=== PATIENT | female | born 1955 | race African-American/Black ===

== ENCOUNTER 2016-10-04 11:11 | Inpatient (IN) | payer OTHER, MEDICAID ==
[~2016-10-04] VITALS: Ht 177.8 cm; Wt 72.4 kg
[~2016-10-04 11:11] MED LIST: ENAL5TAB92; GABA1POW27 PO; GABAP; HYDR-1421; METH10TA6 PO; METO-169; PACERONE PO; SIMV10TA84 PO; VITAMIN D PO
[2016-10-04] MEDS ORDERED: ALBUTEROL SULF 2.5 MG/0.5ML(0.5%) NEB SOLN HHN STA (14:04)
[2016-10-04] MEDS ORDERED: methylPREDNISolone SOD SUCC 125 MG/2 ML VL IV ONE (14:15)
[2016-10-04] MEDS ORDERED: LEVOFLOXACIN 500MG 100 ML IV ONE (14:15)
[2016-10-04] MEDS ORDERED: IPRATROPIUM BROM 0.5 MG/2.5ML INH SOL NEB ONE (14:15)
[2016-10-04 14:27] LABS: Basophils # (auto) 0 uL; Basophils % (auto) 0.2 % (0.0-2.0); Eosinophils # (auto) 0 uL; Eosinophils % (auto) 0.1 % (0.0-7.0); Hematocrit 43.1 % (36.0-46.0); Hemoglobin 13.8 g/dL (12.2-16.2); Lymphocytes # (auto) 1.3 uL; Lymphocytes % (auto) 12.5 % (10.0-50.0); Mean Corpuscular Hemoglobin 31.2 pg (28.0-32.0); Mean Corpuscular Hgb Conc. 32.1 g/dL (32.0-36.0); Mean Platelet Volume 8.5 fL (7.4-10.4); Monocytes # (auto) 1.1 uL; Monocytes % (auto) 10.5 % (0.0-12.0); Neutrophils % (auto) 76.7 % (37.0-80.0); Platelet Count (auto) 224 10^3/uL (140-450); Red Cell Distribution Width 14.6 % (11.6-16.0); White Blood Cell 10.4 10^3/uL (4.4-10.8)
[2016-10-04 14:50] LABS: Albumin 3.7 g/dL (3.4-5.0); BUN/Creatinine Ratio 9.7; Bilirubin, Total 1.5 mg/dL (0.2-1.0); Calcium 9.5 mg/dL (8.5-10.1); Magnesium 2.1 mg/dL (1.6-2.6); Potassium 4.1 mmol/L (3.5-5.1)
[2016-10-04 14:52] LABS: Lactic Acid 2.3 mmol/L (0.4-2.0)
[2016-10-04] MEDS ORDERED: SODIUM CHLORIDE 0.9% 250 ML IV ONE (15:00)
[2016-10-04 15:12] LABS: B-Type Natriuretic Peptide 262.64 pg/mL (0-100); Temperature: 23.5 C (20.0-25.0)
[2016-10-04 15:22] LABS: REFLEX LACTIC ACID YES OR NO YES
[2016-10-04] MEDS ORDERED: AZITHROMYCIN 500MG/D5W 250ML 250 ML IV ONE (16:00)
[2016-10-04] MEDS ORDERED: cloNIDine HCL 0.1 MG TAB PO PRN (16:15)
[2016-10-04] MEDS ORDERED: MORPHINE SULF INJ 2 MG/ML SYRINGE 1ML IV PRN ×2 (16:15)
[2016-10-04] MEDS ORDERED: NITROGLYCERIN 0.4 MG SL TAB SL PRN (16:15)
[2016-10-04] MEDS ORDERED: ACETAMINOPHEN 325 MG TAB PO PRN (16:15)
[2016-10-04] MEDS ORDERED: AMIODARONE HCL 200 MG TAB PO ONE (16:15)
[2016-10-04] MEDS ORDERED: DOCUSATE SOD 100 MG CAP PO PRN (16:15)
[2016-10-04] MEDS ORDERED: CHOLECALCIFEROL (VITD3) 1,000 UNIT TAB PO ONE (16:15)
[2016-10-04] MEDS ORDERED: amLODIPine BESYLATE 5 MG TAB PO ONE (16:15)
[2016-10-04] MEDS ORDERED: CYANOCOBALAMIN 500 MCG TAB PO ONE (16:15)
[2016-10-04] MEDS ORDERED: ONDANSETRON HCL 4 MG/2 ML VIAL IV PRN (16:15)
[2016-10-04] MEDS ORDERED: FUROSEMIDE 20 MG TAB PO ONE (16:15)
[2016-10-04] MEDS: MULTIPLE VITAMIN TAB PO SCH (16:16)
[2016-10-04] MEDS: FAMOTIDINE 20 MG TAB PO SCH (16:17)
[2016-10-04 16:19] LABS: Lactic Acid 2.2 mmol/L (0.4-2.0)
[2016-10-04 16:51] LABS: REFLEX LACTIC ACID YES OR NO YES
[2016-10-04] MEDS: IPRATROPIUM BROM 0.5 MG/2.5ML INH SOL NEB SCH ×2 (18:00→22:27)
[2016-10-04 18:14] VITALS: BP 135/100
[2016-10-04] MEDS ORDERED: NOR5T PO (18:26)
[2016-10-04] MEDS ORDERED: ALPR0.5T PO (18:26)
[2016-10-04] MEDS ORDERED: AMI200T PO (18:34)
[2016-10-04] MEDS ORDERED: CLON0.1T PO (18:34)
[2016-10-04] MEDS ORDERED: METO-158 PO (18:34)
[2016-10-04] MEDS ORDERED: GABA300C8 PO (18:34)
[2016-10-04] MEDS ORDERED: SIMV-8 PO (18:34)
[2016-10-04] MEDS ORDERED: AMLO10TA2 PO (18:34)
[2016-10-04] MEDS ORDERED: POTA10TA34 PO (18:34)
[2016-10-04] MEDS ORDERED: CYAN500L3 PO (18:34)
[2016-10-04] MEDS ORDERED: FURO20TA PO (18:34)
[2016-10-04] MEDS ORDERED: CHOL500023 PO (18:34)
[2016-10-04] MEDS ORDERED: ASPI-378 PO (18:34)
[2016-10-04 19:16] LABS: Lactic Acid 3.8 mmol/L (0.4-2.0)
[2016-10-04 19:33] LABS: REFLEX LACTIC ACID YES OR NO NO
[2016-10-04 21:30] VITALS: BP 96/52
[2016-10-04] MEDS: ALBUTEROL SULF 2.5 MG/0.5ML(0.5%) NEB SOLN NEB SCH ×2 (21:34→22:27)
[2016-10-04] MEDS: METOPROLOL TARTRATE 50 MG TAB PO SCH (22:00)
[2016-10-04] MEDS ORDERED: ENALAPRIL MALEATE 10 MG TAB PO SCH (22:00)
[2016-10-04] MEDS: GABAPENTIN 300 MG CAP PO SCH (22:27)
[2016-10-04] MEDS: POTASSIUM CHL 10 Meq TABLET PO SCH (22:27)
[2016-10-04] MEDS: ATORVASTATIN 20 MG TAB PO SCH (22:28)
[2016-10-04] MEDS: HYDROcodone-ACET 7.5/325MG TAB PO PRN (22:29)
[2016-10-04] MEDS: SODIUM CHLOR 0.9% PF (SALINE LOCK) 10ML VIAL IV SCH (22:30)
[2016-10-04] MEDS: methylPREDNISolone SOD SUCC 125 MG/2 ML VL IV SCH (23:42)
[2016-10-04] MEDS: TEMAZEPAM 15 MG CAP PO PRN (23:42)
[2016-10-05] VITALS (7 sets, daily range): BP systolic 107–132; BP diastolic 56–76
[2016-10-05] MEDS: ALBUTEROL SULF 2.5 MG/0.5ML(0.5%) NEB SOLN NEB SCH ×6 (03:45→22:42)
[2016-10-05] MEDS: IPRATROPIUM BROM 0.5 MG/2.5ML INH SOL NEB SCH ×6 (03:45→22:43)
[2016-10-05] MEDS: methylPREDNISolone SOD SUCC 125 MG/2 ML VL IV SCH ×3 (05:58→18:55)
[2016-10-05] MEDS: GABAPENTIN 300 MG CAP PO SCH ×3 (05:59→22:31)
[2016-10-05] MEDS: SODIUM CHLOR 0.9% PF (SALINE LOCK) 10ML VIAL IV SCH ×3 (05:59→22:32)
[2016-10-05 06:11] LABS: Potassium 3.8 mmol/L (3.5-5.1)
[2016-10-05 06:19] LABS: Albumin 3.3 g/dL (3.4-5.0); BUN/Creatinine Ratio 11.8; Calcium 8.6 mg/dL (8.5-10.1)
[2016-10-05 06:22] LABS: Bilirubin, Total 0.9 mg/dL (0.2-1.0); Total Protein 7.3 g/dL (6.4-8.2)
[2016-10-05 06:36] LABS: Basophils # (auto) 0 uL; Eosinophils # (auto) 0 uL; Hematocrit 36.5 % (36.0-46.0); Hemoglobin 11.7 g/dL (12.2-16.2); Lymphocytes # (auto) 0.6 uL; Lymphocytes % (auto) 6.1 % (10.0-50.0); Mean Corpuscular Hemoglobin 30.9 pg (28.0-32.0); Mean Corpuscular Hgb Conc. 32.1 g/dL (32.0-36.0); Mean Corpuscular Volume 96.3 fL (80.0-100.0); Mean Platelet Volume 9.1 fL (7.4-10.4); Monocytes # (auto) 0.2 uL; Monocytes % (auto) 2.6 % (0.0-12.0); Neutrophils # (auto) 8.2 uL; Neutrophils % (auto) 91.3 % (37.0-80.0); Platelet Count (auto) 182 10^3/uL (140-450); Red Cell Distribution Width 14.6 % (11.6-16.0)
[2016-10-05] MEDS: HYDROcodone-ACET 7.5/325MG TAB PO PRN (08:55)
[2016-10-05] MEDS: amLODIPine BESYLATE 5 MG TAB PO SCH (10:00)
[2016-10-05] MEDS ORDERED: AZITHROMYCIN 500MG/D5W 250ML 250 ML IV SCH (10:00)
[2016-10-05] MEDS ORDERED: FUROSEMIDE 20 MG TAB PO SCH (10:00)
[2016-10-05] MEDS ORDERED: LEVOFLOXACIN 250MG 50 ML IV SCH (10:00)
[2016-10-05] MEDS ORDERED: ASPirin-EC 81 mg tab PO SCH ×2 (10:00)
[2016-10-05] MEDS: MULTIPLE VITAMIN TAB PO SCH (10:07)
[2016-10-05] MEDS: CHOLECALCIFEROL (VITD3) 1,000 UNIT TAB PO SCH (10:07)
[2016-10-05] MEDS: CYANOCOBALAMIN 500 MCG TAB PO SCH (10:08)
[2016-10-05] MEDS: FAMOTIDINE 20 MG TAB PO SCH (10:08)
[2016-10-05] MEDS: AMIODARONE HCL 200 MG TAB PO SCH (10:08)
[2016-10-05] MEDS: METOPROLOL TARTRATE 50 MG TAB PO SCH ×2 (10:08→22:32)
[2016-10-05] MEDS: POTASSIUM CHL 10 Meq TABLET PO SCH ×2 (10:08→22:32)
[2016-10-05] MEDS: LEVOFLOXACIN 750MG 150 ML IV SCH (10:09)
[2016-10-05] MEDS: ALPRAZolam 0.25 MG TAB PO PRN (10:38)
[2016-10-05] MEDS: ENOXAPARIN SOD 100 MG/1 ML SYRINGE SC SCH ×2 (12:55→22:31)
[2016-10-05] MEDS: ATORVASTATIN 20 MG TAB PO SCH (22:31)
[2016-10-06] MEDS: methylPREDNISolone SOD SUCC 125 MG/2 ML VL IV SCH ×2 (00:05→05:54)
[2016-10-06] MEDS: IPRATROPIUM BROM 0.5 MG/2.5ML INH SOL NEB SCH ×6 (02:38→23:30)
[2016-10-06] MEDS: ALBUTEROL SULF 2.5 MG/0.5ML(0.5%) NEB SOLN NEB SCH ×6 (02:38→23:29)
[2016-10-06 05:00] VITALS: BP 109/73
[2016-10-06 05:51] LABS: BUN/Creatinine Ratio 17.3; Calcium 9.3 mg/dL (8.5-10.1); Magnesium 2.3 mg/dL (1.6-2.6); Phosphorus 3.7 mg/dL (2.6-4.90); Potassium 4.5 mmol/L (3.5-5.1)
[2016-10-06] MEDS: GABAPENTIN 300 MG CAP PO SCH ×3 (05:54→21:53)
[2016-10-06] MEDS: SODIUM CHLOR 0.9% PF (SALINE LOCK) 10ML VIAL IV SCH (05:54)
[2016-10-06 06:41] LABS: Hematocrit 37.4 % (36.0-46.0); Hemoglobin 12.3 g/dL (12.2-16.2); Mean Corpuscular Hgb Conc. 32.9 g/dL (32.0-36.0); Mean Corpuscular Volume 97.2 fL (80.0-100.0); Platelet Count (auto) 177 10^3/uL (140-450); Red Cell Distribution Width 13.5 % (11.6-16.0); SUSPECT VIEW TRANSMISSION; White Blood Cell 14.2 10^3/uL (4.4-10.8)
[2016-10-06 07:22] LABS: Metamyelocytes % 0; Myelocytes % 0; Promyelocytes % 0; Reactive Lymphocytes 0
[2016-10-06 08:58] LABS: Platelet Estimate Adequate
[2016-10-06 09:00] VITALS: BP 117/59
[2016-10-06] MEDS ORDERED: MIDAZOLAM HCL 1MG/1ML-2 ML VIAL ONE ×3 (09:05→09:18)
[2016-10-06] MEDS ORDERED: fentaNYL CITRATE 100 MCG/2 ML VL ONE (09:05)
[2016-10-06] MEDS ORDERED: LIDOCAINE VISCOUS 2% 15ML UD ONE (09:09)
[2016-10-06] MEDS: POTASSIUM CHL 10 Meq TABLET PO SCH ×2 (10:00→22:00)
[2016-10-06] MEDS: CYANOCOBALAMIN 500 MCG TAB PO SCH (10:43)
[2016-10-06] MEDS: CHOLECALCIFEROL (VITD3) 1,000 UNIT TAB PO SCH (10:43)
[2016-10-06] MEDS: FAMOTIDINE 20 MG TAB PO SCH (10:43)
[2016-10-06] MEDS: MULTIPLE VITAMIN TAB PO SCH (10:44)
[2016-10-06] MEDS: AMIODARONE HCL 200 MG TAB PO SCH (10:45)
[2016-10-06] MEDS: amLODIPine BESYLATE 5 MG TAB PO SCH (10:47)
[2016-10-06] MEDS: METOPROLOL TARTRATE 50 MG TAB PO SCH ×2 (10:47→21:54)
[2016-10-06] MEDS: ENOXAPARIN SOD 80 MG/0.8ML SYRINGE SC SCH ×2 (10:48→21:53)
[2016-10-06 12:00] VITALS: BP 117/86
[2016-10-06] MEDS: ALPRAZolam 0.25 MG TAB PO PRN (14:33)
[2016-10-06 16:00] VITALS: BP 118/82
[2016-10-06] MEDS: HYDROcodone-ACET 7.5/325MG TAB PO PRN (20:26)
[2016-10-06 20:51] VITALS: BP 107/81
[2016-10-06] MEDS: ATORVASTATIN 20 MG TAB PO SCH (21:55)
[2016-10-07] MEDS: methylPREDNISolone SOD SUCC 125 MG/2 ML VL IV SCH ×4 (01:44→12:35)
[2016-10-07] MEDS: SODIUM CHLOR 0.9% PF (SALINE LOCK) 10ML VIAL IV SCH ×4 (01:45→22:00)
[2016-10-07] MEDS: ALBUTEROL SULF 2.5 MG/0.5ML(0.5%) NEB SOLN NEB SCH ×6 (03:00→22:05)
[2016-10-07] MEDS: IPRATROPIUM BROM 0.5 MG/2.5ML INH SOL NEB SCH ×6 (03:00→22:05)
[2016-10-07 05:07] VITALS: BP 11/56
[2016-10-07 05:08] VITALS: BP 108/71
[2016-10-07 06:34] LABS: Basophils # (auto) 0 uL; Basophils % (auto) 0.1 % (0.0-2.0); Eosinophils # (auto) 0 uL; Hematocrit 36.9 % (36.0-46.0); Hemoglobin 11.9 g/dL (12.2-16.2); Lymphocytes # (auto) 0.6 uL; Mean Corpuscular Hemoglobin 31.2 pg (28.0-32.0); Mean Corpuscular Hgb Conc. 32.3 g/dL (32.0-36.0); Mean Corpuscular Volume 96.4 fL (80.0-100.0); Mean Platelet Volume 8.8 fL (7.4-10.4); Monocytes # (auto) 0.4 uL; Monocytes % (auto) 2.5 % (0.0-12.0); Neutrophils # (auto) 14.4 uL; Neutrophils % (auto) 93.4 % (37.0-80.0); Platelet Count (auto) 237 10^3/uL (140-450); Red Cell Distribution Width 15.2 % (11.6-16.0); White Blood Cell 15.5 10^3/uL (4.4-10.8)
[2016-10-07 06:53] LABS: BUN/Creatinine Ratio 21.9; Calcium 8.8 mg/dL (8.5-10.1); Magnesium 2.6 mg/dL (1.6-2.6); Potassium 4.5 mmol/L (3.5-5.1)
[2016-10-07 09:00] VITALS: BP 125/66
[2016-10-07] MEDS: amLODIPine BESYLATE 5 MG TAB PO SCH (10:00)
[2016-10-07] MEDS: POTASSIUM CHL 10 Meq TABLET PO SCH ×2 (10:00→22:00)
[2016-10-07] MEDS: CYANOCOBALAMIN 500 MCG TAB PO SCH (10:00)
[2016-10-07] MEDS: LEVOFLOXACIN 750MG 150 ML IV SCH (10:56)
[2016-10-07] MEDS: ENOXAPARIN SOD 80 MG/0.8ML SYRINGE SC SCH ×2 (10:56→21:58)
[2016-10-07] MEDS: CHOLECALCIFEROL (VITD3) 1,000 UNIT TAB PO SCH (10:57)
[2016-10-07] MEDS: AMIODARONE HCL 200 MG TAB PO SCH (10:57)
[2016-10-07] MEDS: METOPROLOL TARTRATE 50 MG TAB PO SCH ×2 (10:57→22:00)
[2016-10-07] MEDS: FAMOTIDINE 20 MG TAB PO SCH (10:57)
[2016-10-07] MEDS: MULTIPLE VITAMIN TAB PO SCH (10:57)
[2016-10-07] MEDS: ALPRAZolam 0.25 MG TAB PO PRN (11:04)
[2016-10-07 13:00] VITALS: BP 127/74
[2016-10-07] MEDS: GABAPENTIN 300 MG CAP PO SCH ×3 (14:00→21:59)
[2016-10-07 17:00] VITALS: BP 128/74
[2016-10-07] MEDS: ATORVASTATIN 20 MG TAB PO SCH (21:59)
[2016-10-07] MEDS: methylPREDNISolone SOD SUCC 40 MG/ML VL IV SCH (21:59)
[2016-10-08 05:14] VITALS: BP 123/58
[2016-10-08] MEDS: GABAPENTIN 300 MG CAP PO SCH ×3 (06:25→22:32)
[2016-10-08] MEDS: methylPREDNISolone SOD SUCC 40 MG/ML VL IV SCH ×3 (06:25→22:41)
[2016-10-08] MEDS: SODIUM CHLOR 0.9% PF (SALINE LOCK) 10ML VIAL IV SCH ×3 (06:26→22:42)
[2016-10-08] MEDS: ALBUTEROL SULF 2.5 MG/0.5ML(0.5%) NEB SOLN NEB SCH ×5 (06:37→22:00)
[2016-10-08] MEDS: IPRATROPIUM BROM 0.5 MG/2.5ML INH SOL NEB SCH ×5 (06:37→22:00)
[2016-10-08 09:00] VITALS: BP 137/74
[2016-10-08] MEDS: CYANOCOBALAMIN 500 MCG TAB PO SCH (10:00)
[2016-10-08] MEDS: POTASSIUM CHL 10 Meq TABLET PO SCH ×2 (10:23→22:33)
[2016-10-08] MEDS: FAMOTIDINE 20 MG TAB PO SCH (10:32)
[2016-10-08] MEDS: CHOLECALCIFEROL (VITD3) 1,000 UNIT TAB PO SCH (10:32)
[2016-10-08] MEDS: MULTIPLE VITAMIN TAB PO SCH (10:32)
[2016-10-08] MEDS: METOPROLOL TARTRATE 50 MG TAB PO SCH ×2 (10:33→22:33)
[2016-10-08] MEDS: amLODIPine BESYLATE 5 MG TAB PO SCH (10:34)
[2016-10-08] MEDS: ENOXAPARIN SOD 80 MG/0.8ML SYRINGE SC SCH ×2 (10:35→22:00)
[2016-10-08 13:00] VITALS: BP 121/98
[2016-10-08 17:00] VITALS: BP 127/81
[2016-10-08 19:59] LABS: Basophils # (auto) 0 uL; Eosinophils # (auto) 0 uL; Hematocrit 41.5 % (36.0-46.0); Hemoglobin 13.1 g/dL (12.2-16.2); Lymphocytes # (auto) 0.8 uL; Lymphocytes % (auto) 4.8 % (10.0-50.0); Mean Corpuscular Hemoglobin 30.8 pg (28.0-32.0); Mean Corpuscular Hgb Conc. 31.5 g/dL (32.0-36.0); Mean Corpuscular Volume 97.5 fL (80.0-100.0); Mean Platelet Volume 8.6 fL (7.4-10.4); Monocytes # (auto) 0.6 uL; Monocytes % (auto) 3.8 % (0.0-12.0); Neutrophils # (auto) 14.6 uL; Neutrophils % (auto) 91.4 % (37.0-80.0); Platelet Count (auto) 288 10^3/uL (140-450); Red Cell Distribution Width 14.8 % (11.6-16.0)
[2016-10-08 20:12] LABS: INR 1.11 (0.9-1.15); Prothrombin Time 11.4 sec (9.37-12.3)
[2016-10-08 22:05] VITALS: BP 124/76
[2016-10-08] MEDS: ATORVASTATIN 20 MG TAB PO SCH (22:32)
[2016-10-08] MEDS: ACETYLCYSTEINE ORAL for CIN 20%(200MG/ML) 4ML PO SCH (22:36)
[2016-10-09] MEDS: IPRATROPIUM BROM 0.5 MG/2.5ML INH SOL NEB SCH ×5 (02:11→22:45)
[2016-10-09] MEDS: ALBUTEROL SULF 2.5 MG/0.5ML(0.5%) NEB SOLN NEB SCH ×7 (02:11→22:45)
[2016-10-09 05:15] VITALS: BP 118/76
[2016-10-09] MEDS: methylPREDNISolone SOD SUCC 40 MG/ML VL IV SCH ×3 (06:19→22:34)
[2016-10-09] MEDS: SODIUM CHLOR 0.9% PF (SALINE LOCK) 10ML VIAL IV SCH ×3 (06:19→22:42)
[2016-10-09] MEDS: GABAPENTIN 300 MG CAP PO SCH ×3 (06:19→22:35)
[2016-10-09 06:26] LABS: Basophils # (auto) 0 uL; Eosinophils # (auto) 0 uL; Hematocrit 36.2 % (36.0-46.0); Hemoglobin 11.6 g/dL (12.2-16.2); Lymphocytes # (auto) 0.5 uL; Lymphocytes % (auto) 5.3 % (10.0-50.0); Mean Corpuscular Hemoglobin 31.1 pg (28.0-32.0); Mean Corpuscular Hgb Conc. 32.2 g/dL (32.0-36.0); Mean Corpuscular Volume 96.6 fL (80.0-100.0); Mean Platelet Volume 8.4 fL (7.4-10.4); Monocytes # (auto) 0.4 uL; Monocytes % (auto) 3.5 % (0.0-12.0); Neutrophils # (auto) 9.2 uL; Neutrophils % (auto) 91.2 % (37.0-80.0); Platelet Count (auto) 230 10^3/uL (140-450)
[2016-10-09 07:04] LABS: BUN/Creatinine Ratio 24.1; Calcium 8.4 mg/dL (8.5-10.1); Magnesium 2.8 mg/dL (1.6-2.6)
[2016-10-09 09:00] VITALS: BP 137/90
[2016-10-09] MEDS: ENOXAPARIN SOD 80 MG/0.8ML SYRINGE SC SCH ×2 (09:59→22:34)
[2016-10-09] MEDS: LEVOFLOXACIN 750MG 150 ML IV SCH (09:59)
[2016-10-09] MEDS: FAMOTIDINE 20 MG TAB PO SCH (09:59)
[2016-10-09] MEDS: POTASSIUM CHL 10 Meq TABLET PO SCH ×2 (10:00→22:34)
[2016-10-09] MEDS: CHOLECALCIFEROL (VITD3) 1,000 UNIT TAB PO SCH (10:01)
[2016-10-09] MEDS: CYANOCOBALAMIN 500 MCG TAB PO SCH (10:01)
[2016-10-09] MEDS: METOPROLOL TARTRATE 50 MG TAB PO SCH ×2 (10:02→22:35)
[2016-10-09] MEDS: amLODIPine BESYLATE 5 MG TAB PO SCH (10:03)
[2016-10-09] MEDS: MULTIPLE VITAMIN TAB PO SCH (10:04)
[2016-10-09 10:43] VITALS: BP 137/90
[2016-10-09] MEDS: BUDESONIDE (INHALATION) 0.5 MG/2 ML NEB NEB SCH ×2 (11:49→19:52)
[2016-10-09 13:00] VITALS: BP 112/78
[2016-10-09] MEDS: ACETYLCYSTEINE ORAL for CIN 20%(200MG/ML) 4ML PO SCH ×2 (15:44→22:55)
[2016-10-09 17:00] VITALS: BP 138/75
[2016-10-09 22:00] VITALS: BP 126/75
[2016-10-09] MEDS: ATORVASTATIN 20 MG TAB PO SCH (22:35)
[2016-10-10] MEDS: ALBUTEROL SULF 2.5 MG/0.5ML(0.5%) NEB SOLN NEB SCH ×6 (02:00→23:18)
[2016-10-10] MEDS: IPRATROPIUM BROM 0.5 MG/2.5ML INH SOL NEB SCH ×6 (02:00→23:18)
[2016-10-10 05:00] VITALS: BP 134/76
[2016-10-10 05:23] LABS: Basophils # (auto) 0 uL; Eosinophils # (auto) 0 uL; Hematocrit 37.3 % (36.0-46.0); Lymphocytes # (auto) 0.4 uL; Monocytes # (auto) 0.2 uL; Platelet Count (auto) 257 10^3/uL (140-450)
[2016-10-10] MEDS: GABAPENTIN 300 MG CAP PO SCH ×3 (05:31→22:35)
[2016-10-10 05:32] LABS: Lymphocytes % (auto) 4.4 % (10.0-50.0); Mean Corpuscular Hemoglobin 30.8 pg (28.0-32.0); Mean Corpuscular Hgb Conc. 32.1 g/dL (32.0-36.0); Mean Platelet Volume 8.4 fL (7.4-10.4); Monocytes % (auto) 1.7 % (0.0-12.0); Neutrophils # (auto) 9.3 uL; Neutrophils % (auto) 93.9 % (37.0-80.0); Red Cell Distribution Width 14.5 % (11.6-16.0); White Blood Cell 9.9 10^3/uL (4.4-10.8)
[2016-10-10] MEDS: SODIUM CHLOR 0.9% PF (SALINE LOCK) 10ML VIAL IV SCH ×3 (05:32→22:39)
[2016-10-10] MEDS: methylPREDNISolone SOD SUCC 40 MG/ML VL IV SCH ×3 (05:32→22:34)
[2016-10-10 05:36] LABS: BUN/Creatinine Ratio 26.9; Calcium 8.7 mg/dL (8.5-10.1)
[2016-10-10 09:00] VITALS: BP 147/82
[2016-10-10] MEDS: CHOLECALCIFEROL (VITD3) 1,000 UNIT TAB PO SCH (09:26)
[2016-10-10] MEDS: POTASSIUM CHL 10 Meq TABLET PO SCH ×2 (09:29→22:35)
[2016-10-10] MEDS: MULTIPLE VITAMIN TAB PO SCH (09:30)
[2016-10-10] MEDS: ENOXAPARIN SOD 80 MG/0.8ML SYRINGE SC SCH ×2 (09:30→22:34)
[2016-10-10] MEDS: CYANOCOBALAMIN 500 MCG TAB PO SCH (09:31)
[2016-10-10] MEDS: HYDROcodone-ACET 7.5/325MG TAB PO PRN (09:31)
[2016-10-10] MEDS: METOPROLOL TARTRATE 50 MG TAB PO SCH ×2 (09:33→22:35)
[2016-10-10] MEDS: amLODIPine BESYLATE 5 MG TAB PO SCH (09:34)
[2016-10-10] MEDS: FAMOTIDINE 20 MG TAB PO SCH (09:35)
[2016-10-10] MEDS: ACETYLCYSTEINE ORAL for CIN 20%(200MG/ML) 4ML PO SCH (09:35)
[2016-10-10] MEDS: BUDESONIDE (INHALATION) 0.5 MG/2 ML NEB NEB SCH ×2 (10:11→20:08)
[2016-10-10 13:00] VITALS: BP 118/76
[2016-10-10 15:00] VITALS: BP 133/84
[2016-10-10 21:38] VITALS: BP 141/82
[2016-10-10] MEDS: ATORVASTATIN 20 MG TAB PO SCH (22:35)
[2016-10-10] MEDS: TEMAZEPAM 15 MG CAP PO PRN (22:35)
[2016-10-11] MEDS: IPRATROPIUM BROM 0.5 MG/2.5ML INH SOL NEB SCH ×6 (02:52→22:40)
[2016-10-11] MEDS: ALBUTEROL SULF 2.5 MG/0.5ML(0.5%) NEB SOLN NEB SCH ×6 (02:52→22:40)
[2016-10-11 04:58] VITALS: BP 128/71
[2016-10-11] MEDS: GABAPENTIN 300 MG CAP PO SCH ×3 (05:58→22:17)
[2016-10-11] MEDS: methylPREDNISolone SOD SUCC 40 MG/ML VL IV SCH ×3 (05:59→22:17)
[2016-10-11] MEDS: SODIUM CHLOR 0.9% PF (SALINE LOCK) 10ML VIAL IV SCH ×3 (06:00→22:16)
[2016-10-11 06:57] LABS: Basophils # (auto) 0 uL; Eosinophils # (auto) 0 uL; Hematocrit 38.8 % (36.0-46.0); Hemoglobin 12.3 g/dL (12.2-16.2); Lymphocytes # (auto) 0.5 uL; Lymphocytes % (auto) 4.5 % (10.0-50.0); Mean Corpuscular Hemoglobin 30.9 pg (28.0-32.0); Mean Corpuscular Hgb Conc. 31.7 g/dL (32.0-36.0); Mean Corpuscular Volume 97.4 fL (80.0-100.0); Monocytes # (auto) 0.3 uL; Monocytes % (auto) 2.9 % (0.0-12.0); Neutrophils # (auto) 9.3 uL; Neutrophils % (auto) 92.6 % (37.0-80.0); Platelet Count (auto) 277 10^3/uL (140-450); Red Cell Distribution Width 14.7 % (11.6-16.0)
[2016-10-11 07:23] LABS: BUN/Creatinine Ratio 28.9; Calcium 8.6 mg/dL (8.5-10.1)
[2016-10-11 07:29] LABS: Potassium 5.6 mmol/L (3.5-5.1)
[2016-10-11 09:00] VITALS: BP_SYST 149; BP_SYST 150; BP_DIAS 68; BP_DIAS 79
[2016-10-11] MEDS: LEVOFLOXACIN 750MG 150 ML IV SCH (10:00)
[2016-10-11] MEDS ORDERED: SODIUM POLYSTYRENE SULF 15GM/60ML SUSP PO ONE (10:30)
[2016-10-11] MEDS: BUDESONIDE (INHALATION) 0.5 MG/2 ML NEB NEB SCH ×2 (10:43→22:40)
[2016-10-11] MEDS: MULTIPLE VITAMIN TAB PO SCH (10:52)
[2016-10-11] MEDS: METOPROLOL TARTRATE 50 MG TAB PO SCH ×2 (10:52→22:19)
[2016-10-11] MEDS: CHOLECALCIFEROL (VITD3) 1,000 UNIT TAB PO SCH (10:53)
[2016-10-11] MEDS: amLODIPine BESYLATE 5 MG TAB PO SCH (10:53)
[2016-10-11] MEDS: FAMOTIDINE 20 MG TAB PO SCH (10:53)
[2016-10-11] MEDS: ENOXAPARIN SOD 80 MG/0.8ML SYRINGE SC SCH ×2 (10:54→22:20)
[2016-10-11] MEDS: CYANOCOBALAMIN 500 MCG TAB PO SCH (10:55)
[2016-10-11] MEDS: HYDROcodone-ACET 7.5/325MG TAB PO PRN (11:07)
[2016-10-11 13:00] VITALS: BP 124/76
[2016-10-11 15:00] VITALS: BP 135/76
[2016-10-11 21:50] VITALS: BP 139/84
[2016-10-11] MEDS: ATORVASTATIN 20 MG TAB PO SCH (22:19)
[2016-10-12] MEDS: IPRATROPIUM BROM 0.5 MG/2.5ML INH SOL NEB SCH ×3 (02:23→11:02)
[2016-10-12] MEDS: ALBUTEROL SULF 2.5 MG/0.5ML(0.5%) NEB SOLN NEB SCH ×3 (02:23→11:02)
[2016-10-12 05:00] VITALS: BP 133/72
[2016-10-12 05:51] LABS: Basophils # (auto) 0 uL; Eosinophils # (auto) 0 uL; Hematocrit 37.1 % (36.0-46.0); Hemoglobin 11.9 g/dL (12.2-16.2); Lymphocytes # (auto) 0.4 uL; Lymphocytes % (auto) 3.8 % (10.0-50.0); Mean Corpuscular Hemoglobin 31.1 pg (28.0-32.0); Mean Platelet Volume 8.1 fL (7.4-10.4); Monocytes # (auto) 0.2 uL; Monocytes % (auto) 2.5 % (0.0-12.0); Neutrophils # (auto) 9.2 uL; Neutrophils % (auto) 93.7 % (37.0-80.0); Platelet Count (auto) 234 10^3/uL (140-450); Red Cell Distribution Width 14.3 % (11.6-16.0); White Blood Cell 9.9 10^3/uL (4.4-10.8)
[2016-10-12] MEDS: SODIUM CHLOR 0.9% PF (SALINE LOCK) 10ML VIAL IV SCH ×3 (05:52→21:41)
[2016-10-12] MEDS: methylPREDNISolone SOD SUCC 40 MG/ML VL IV SCH (05:52)
[2016-10-12] MEDS: GABAPENTIN 300 MG CAP PO SCH ×3 (05:52→21:42)
[2016-10-12 05:59] LABS: Potassium 4.2 mmol/L (3.5-5.1)
[2016-10-12 06:01] LABS: BUN/Creatinine Ratio 29.5
[2016-10-12 09:00] VITALS: BP 137/79
[2016-10-12] MEDS: BUDESONIDE (INHALATION) 0.5 MG/2 ML NEB NEB SCH ×2 (11:02→22:11)
[2016-10-12] MEDS ORDERED: ALPRAZolam 0.25 MG TAB PO PRN (12:00)
[2016-10-12] MEDS ORDERED: HYDROcodone-ACET 7.5/325MG TAB PO PRN (12:00)
[2016-10-12] MEDS ORDERED: MORPHINE SULF INJ 2 MG/ML SYRINGE 1ML IV PRN ×2 (12:00)
[2016-10-12] MEDS ORDERED: TEMAZEPAM 15 MG CAP PO PRN (12:00)
[2016-10-12] MEDS: MULTIPLE VITAMIN TAB PO SCH (12:57)
[2016-10-12] MEDS: LEVOFLOXACIN 750MG 150 ML IV SCH (12:57)
[2016-10-12] MEDS: CYANOCOBALAMIN 500 MCG TAB PO SCH (12:58)
[2016-10-12] MEDS: CHOLECALCIFEROL (VITD3) 1,000 UNIT TAB PO SCH (12:59)
[2016-10-12] MEDS: METOPROLOL TARTRATE 50 MG TAB PO SCH ×2 (12:59→21:43)
[2016-10-12] MEDS: amLODIPine BESYLATE 5 MG TAB PO SCH (13:00)
[2016-10-12 13:06] VITALS: BP 127/92
[2016-10-12] MEDS: ENOXAPARIN SOD 80 MG/0.8ML SYRINGE SC SCH ×2 (13:17→21:44)
[2016-10-12] MEDS: FAMOTIDINE 20 MG TAB PO SCH (13:17)
[2016-10-12 13:23] VITALS: BP 137/79
[2016-10-12 17:00] VITALS: BP 144/70
[2016-10-12] MEDS ORDERED: IPRATROPIUM BROM 0.5 MG/2.5ML INH SOL NEB PRN (18:00)
[2016-10-12] MEDS ORDERED: ALBUTEROL SULF 2.5 MG/0.5ML(0.5%) NEB SOLN NEB PRN (18:00)
[2016-10-12 18:16] LABS: INR 1.08 (0.9-1.15); Prothrombin Time 11.1 sec (9.37-12.3)
[2016-10-12] MEDS ORDERED: WARFARIN SODIUM 10 MG TAB PO ONE (19:00)
[2016-10-12] MEDS: ATORVASTATIN 20 MG TAB PO SCH (21:43)
[2016-10-12 21:57] VITALS: BP 137/85
[2016-10-13 04:43] VITALS: BP 127/67
[2016-10-13 05:23] LABS: Basophils # (auto) 0 uL; Eosinophils # (auto) 0 uL; Hematocrit 34.1 % (36.0-46.0); Lymphocytes # (auto) 0.6 uL; Lymphocytes % (auto) 5.7 % (10.0-50.0); Mean Corpuscular Hemoglobin 31.3 pg (28.0-32.0); Mean Corpuscular Hgb Conc. 32.4 g/dL (32.0-36.0); Mean Corpuscular Volume 96.5 fL (80.0-100.0); Mean Platelet Volume 7.9 fL (7.4-10.4); Monocytes # (auto) 0.6 uL; Monocytes % (auto) 6.1 % (0.0-12.0); Neutrophils # (auto) 8.6 uL; Neutrophils % (auto) 88.2 % (37.0-80.0); Platelet Count (auto) 237 10^3/uL (140-450); Red Cell Distribution Width 14.5 % (11.6-16.0); White Blood Cell 9.8 10^3/uL (4.4-10.8)
[2016-10-13] MEDS: GABAPENTIN 300 MG CAP PO SCH ×2 (05:31→14:35)
[2016-10-13] MEDS: SODIUM CHLOR 0.9% PF (SALINE LOCK) 10ML VIAL IV SCH ×2 (05:31→14:35)
[2016-10-13 05:36] LABS: BUN/Creatinine Ratio 27.5; Calcium 7.7 mg/dL (8.5-10.1); Potassium 4.3 mmol/L (3.5-5.1)
[2016-10-13 05:37] LABS: INR 1.14 (0.9-1.15); Partial Thromboplastin Time 33.2 sec (22.64-33.71); Prothrombin Time 11.7 sec (9.37-12.3)
[2016-10-13 09:00] VITALS: BP 128/81
[2016-10-13] MEDS ORDERED: predniSONE 20 MG TAB PO SCH (10:00)
[2016-10-13] MEDS: LEVOFLOXACIN 750MG 150 ML IV SCH (10:18)
[2016-10-13] MEDS: ENOXAPARIN SOD 80 MG/0.8ML SYRINGE SC SCH (10:19)
[2016-10-13] MEDS: CHOLECALCIFEROL (VITD3) 1,000 UNIT TAB PO SCH (10:19)
[2016-10-13] MEDS: FAMOTIDINE 20 MG TAB PO SCH (10:19)
[2016-10-13] MEDS: CYANOCOBALAMIN 500 MCG TAB PO SCH (10:19)
[2016-10-13] MEDS: MULTIPLE VITAMIN TAB PO SCH (10:19)
[2016-10-13] MEDS: METOPROLOL TARTRATE 50 MG TAB PO SCH (10:20)
[2016-10-13] MEDS: amLODIPine BESYLATE 5 MG TAB PO SCH (10:21)
[2016-10-13] MEDS ORDERED: FLUCONAZOLE 200MG/100ML 100 ML IV SCH (11:00)
[2016-10-13] MEDS ORDERED: ENA10T PO (11:18)
[2016-10-13 11:46] VITALS: BP 128/81
[2016-10-13] MEDS: BUDESONIDE (INHALATION) 0.5 MG/2 ML NEB NEB SCH (12:49)
[2016-10-13 12:58] VITALS: BP 144/83
[2016-10-13 17:00] VITALS: BP 110/72
[2016-10-13] MEDS ORDERED: WARFARIN SODIUM 10 MG TAB PO ONE (17:00)
[2016-10-14] MEDS ORDERED: FLUCONAZOLE 100 MG TAB PO SCH (10:00)
== END 2016-10-13 19:45 | disposition home or self-care (01) | DRG 871 ==
LOC: ER 11:18 → TELE 11:19 → TELE-EAST 17:45 → EAST 10-13 17:55
PROVIDERS: ADMIT Internal Medicine; ATTEND Family Medicine
PROC: B246ZZ4 Ultrasonography of Right and Left Heart, Transesophageal (ICD-10-PCS; principal; 2016-10-06)
DX: A41.9 Sepsis, unspecified organism (principal); J18.9 Pneumonia, unspecified organism; N17.0 Acute kidney failure with tubular necrosis; D68.69 Other thrombophilia; I13.0 Hypertensive heart and chronic kidney disease with heart failure and stage 1 through stage 4 chronic kidney disease, or unspecified chronic kidney disease; I47.2 Ventricular tachycardia; I48.92 Unspecified atrial flutter; I50.32 Chronic diastolic (congestive) heart failure; J44.0 Chronic obstructive pulmonary disease with (acute) lower respiratory infection; J44.1 Chronic obstructive pulmonary disease with (acute) exacerbation; J45.901 Unspecified asthma with (acute) exacerbation; E78.5 Hyperlipidemia, unspecified; F12.10 Cannabis abuse, uncomplicated; F32.9 Major depressive disorder, single episode, unspecified; E87.5 Hyperkalemia; N27.0 Small kidney, unilateral; K76.9 Liver disease, unspecified; F17.210 Nicotine dependence, cigarettes, uncomplicated; F41.9 Anxiety disorder, unspecified; I00 Rheumatic fever without heart involvement; I08.1 Rheumatic disorders of both mitral and tricuspid valves; I48.2 Chronic atrial fibrillation; N18.3 Chronic kidney disease, stage 3 (moderate); Z82.49 Family history of ischemic heart disease and other diseases of the circulatory system; Z95.0 Presence of cardiac pacemaker; Z83.3 Family history of diabetes mellitus; Z79.01 Long term (current) use of anticoagulants; Z82.3 Family history of stroke; Z86.12 Personal history of poliomyelitis; Z90.710 Acquired absence of both cervix and uterus; Z98.51 Tubal ligation status
CPT/HCPCS: 36415; 36600; 71020; 71250; 76705; 80048; 80053; 82805; 82962; 83036; 83605; 83735; 83880; 84100; 84484; 85007; 85025; 85027; 85610; 85730; 87040; 87070; 87205; 93005; 93306; 93312; 94640; 94644; 96374; 96375; J1956; J2250